=== PATIENT | male | born 1950 | race Caucasian/White ===

== ENCOUNTER → 2017-05-09 | Outpatient (CLI) | payer OTHER, MEDICARE ==
[~2017-05-09] MED LIST: ABILIFY5 MG PO; ACEON; ACETAMINOPHEN325 MG PO; ACTOS15 MG PO; ACTOS30 MG PO; ADVAIR 2501 DISK W/D; ALBUTEROL MININEB NEB; ALBUTEROL17 GM; ALBUTEROL17 GM INH; ALDACTONE PO; ALLEGRA; ALLEGRA PO; AMARYL PO; AMARYL2 MG PO; ANDRODERM1 EAC1 TD; ANDROGEL150 GM TD; ANTI-DIARRHEAL2 M1 PO; ASPIRIN81 MG PO; ATROVENT HFA12.9 GM; AUGMENTIN PO; AXIRON90 ML TOP; BENADRYL25 M3 PO; CIPRO PO; CORDARONE200 M1 PO; COREG CR 10MG10 MG PO; COUMADIN; COUMADIN PO; COUMADIN2.5 MG PO; COUMADIN3 MG PO; COZAAR PO; COZAAR100 MG PO; CRESTOR PO; CRESTOR10 MG PO; CYMBALTA30 MG PO; DEPAKOTE ER PO; DEPAKOTE250 MG PO; DIATX TABLET5 MG; EFFEXOR PO; ELOCON 0.1% OIN15 GM EXT; ERGOCALCIF50000 UNIT PO; FENOFIBRATE145 M1 PO; FERRO-TIME325 MG PO; FERROUS SULFATE; FISH OIL 1,0001 CAP PO; FLONASE 0.05% N16 GM INH; FOLIC ACID PO; FORADIL12 MCG; FUROSEMIDE40 MG PO; GABAPENTIN400 M2 PO; HYDRALAZINE HC100 MG PO; HYDRALAZINE HCL50 MG PO; HYDROCORTISONE30 G2 EXT; IRON PO; JANTOVEN2 MG PO; KCL; KEPPRA750 MG; LANTUS100 U/ML SUBQ; LANTUS100 UNITS/ SUBQ; LASIX PO; LEVOTHYROXINE300 MCG PO; LIPITOR; LIPITOR PO; LOSARTAN POTAS100 MG PO; LOVAZA PO; LOVAZA1 G PO; LOVENOX100 MG/ML INJ; LOVENOX120 MG/0.8 INJ; METOPROLOL SUC100 MG PO; MICRO K PO; MICRO-K10 MEQ PO; MULTI VITAMIN1 EACH PO; MULTI-VITAMIN1 TAB; NEPHROCAPS CAPSU1 MG PO; NEURONTIN PO; NEXIUM PO; NEXIUM40 MG/PACK PO; NIACIN PO; ONE A DAY VITAMIN PO; POTASSIUM CHLO10 ME1 PO; PREDNISONE; PREDNISONE PO; PREDNISONE10 MG; PROAIR HFA8.5 GM IH; SEROQUEL PO; SINEMET 10-1001 EACH PO; SKELAXIN PO; SPIRIVA18 MCG INH; SYMBICORT INH; SYMBYAX 12-501 UDCAP; SYNTHROID PO; SYNTHROID125 PO; SYNTHROID175 MCG PO; SYNTHROID300 MCG PO; THIAMINE HCL100 MG PO; TOPAMAX; TOPAMAX PO; TOPROL XL PO; TOPROL XL100 MG PO; TRICOR134 MG PO; TYLENOL #3 PO; ULORIC80 MG PO; VICTOZA INJ; VICTOZA0.6 MG/0.1 SQ; VITAMIN D50000 UNIT PO; WELCHOL625 MG PO; ZITHROMAX; ZYLOPRIM PO; ZYRTEC PO; ZYRTEC10 M1 PO; ZYRTEC10 M2 PO; [UNRECOGNIZED DRUG - OTHER] PO; [UNRECOGNIZED DRUG - OTHER] SUBQ
--- NOTE | ~2017-05-09 | CT14 ---
[facility] A Service of [facility] RADIOLOGY TEXT RESULTS PATIENT: MARQUIS JEFFERS LOCATION: [facility]AT : 48 UNIT #: [id number] AGE: [address]: Linda Esquivel SEX: M ORDER DR: [id number] [facility] [address] [place], [place] [address] [id number] O MR#: [id number] Acc #: [id number] NAME: MARQUIS JEFFERS : 1950 SEX: M STUDY DATE/TIME: 05/09/2017 11:49 UNIT: [facility] ROOM: STUDY DESCRIPTION: CT Angio Abdomen and Pelvis Attending Physician: Linda Esquivel A.P.R.N. Referring Physician: Linda Esquivel A.P.R.N. Ordering Physician: Linda Esquivel A.P.R.N. Primary Care Physician: Trent Mcintyre M.D. MEDICAL IMAGING REPORT This report is preliminary unless electronic signature is present EXAM CT scan of the abdomen, pelvis, and lower extremities with angiographic reconstructions. INDICATIONS Right leg arterial stenosis of 50% with left leg narrowing as well. Right and left leg pain, which is getting worse over the last year. Previous aortic aneurysm repair. COMPARISON Arterial study from 05/03/17. TECHNIQUE Patient was given 125 mL of Isovue 370 and spiral imaging was performed through the abdomen, pelvis, and lower extremities. Sagittal, coronal, and 3D reconstructions were generated. NASCET criteria was utilized. This CT exam was performed with one or more of the following radiation dose reduction techniques: automatic exposure control, adjustment of mA and/or kV according to patient size, and iterative reconstruction. FINDINGS Lung bases are clear. The gallbladder has been removed. The liver, spleen, pancreas, adrenal glands, and right kidney are normal. The left kidney is atrophic. The bowel is normal. There is no retroperitoneal adenopathy. Bladder and prostate gland are normal. VASCULAR FINDINGS: The upper abdominal aorta is normal in size. Celiac artery and superior mesenteric artery are patent. There are single renal arteries bilaterally and there are dense calcified plaques at the origins of the renal arteries. There seems to be moderate stenosis at the origin of the right renal artery and high-grade stenosis at the origin of the left renal artery. There appears to be mild stenosis at the origin of the STS. [facility] A Service of [facility] RADIOLOGY TEXT RESULTS PATIENT: MARQUIS JEFFERS [id number] [birth year] UNIT #: [id number] AGE: [address]: Linda Esquivel SEX: M ORDER DR: celiac and SMA. The BRIGITTE is not visualized. The patient has aortic bypass graft that extends down to the common femoral region bilaterally. 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 On the right side, the profunda femoral artery is patent. The superficial femoral artery has multiple high-grade stenoses, but appears patent. Popliteal artery is patent. There is a high origin of the anterior tibial artery, which extends down into the foot. The tibioperoneal trunk is patent. Posterior tibial artery is patent proximally, but seems to disappear. I think there is an obstruction and occlusion of the distal tibioperoneal trunk with reconstitution of the posterior tibial and peroneal arteries. The anterior tibial artery arises from above the knee joint. On the left side, the profunda femoral artery is patent. There is a graft or a long stent in the SFA, which is occluded. I believe there is a saphenous vein graft extending from the common femoral region down to the popliteal region. It ties into the distal tibioperoneal trunk and posterior tibial artery then arises, which extends down into the foot. Images of feet show the posterior tibial artery extending out to the metatarsal region on the left and shows an anterior tibial artery extending to the mid tarsal region on the right. The reconstituted posterior tibial artery is seen at the ankle and extends into the foot. There is a 5-10 mm gap in the distal posterior tibial artery on the right. IMPRESSION 1. 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 2. Mild stenosis suggested at the origin of the right renal artery with high-grade stenosis suggested at the origin of the left renal artery. 3. Aortic bifemoral bypass graft, which is patent. 4. The right SFA is patent, but has multiple stenoses, some of which appear to be high-grade. The anterior tibial on the right has an origin above the knee joint and it is patent and extends down into the foot. There is occlusion of the distal tibioperoneal trunk on the right with reconstitution of the peroneal and posterior tibial arteries. The posterior tibial artery is also occluded just above the ankle and it reconstitutes at the foot. 5. On the left side, there is an occluded long stent in the SFA. There is a patent vessel without any branches extending from the common femoral artery down to the tibioperoneal trunk and I presume this is a saphenous vein graft and clinical correlation is recommended. Only the posterior tibial artery is visualized extending distally from the end of the tibioperoneal trunk and extends down into the foot. The anterior tibial and peroneal arteries are not visualized. STAT * RESULT [facility] A Service of [facility] RADIOLOGY TEXT RESULTS PATIENT: MARQUIS JEFFERS [facility] [id number] : [birth year] UNIT #: [id number] AGE: [address]: Linda Esquivel SEX: M ORDER DR: Dictated by... Jesus Newman M.D. THIS IS AN ELECTRONICALLY VERIFIED REPORT Jesus Newman M.D. at 05/10/2017 2:09 PM HOLLY/randi TD: 05/10/2017 07:54 JOB #: [id number] MEDICAL IMAGING REPORT Page 1 of 1 COPY
[2017-05-09 15:25] LABS: POC - CREATININE 1.47 mg/dL (0.64-1.27)
== END | disposition home or self-care (01) ==
LOC: CCAT 09:00
PROVIDERS: Registered Nurse
DX: I73.9 Peripheral vascular disease, unspecified (principal); I77.1 Stricture of artery; Z95.828 Presence of other vascular implants and grafts
CPT/HCPCS: 73706; 74174; 82565; 96360; 96361; Q9967